=== PATIENT | male | born 2000 | race African-American/Black ===

== ENCOUNTER 2024-01-13 23:59 | Observation (INO) | payer SELFPAY ==
--- NOTE | ~2024-01-13 | US_ITS ---
US abdomen limited INDICATION: Elevated liver function tests PROCEDURE: Realtime right upper abdominal ultrasound. COMPARISON: No prior studies for comparison. FINDINGS: The pancreas is normal without focal mass or pancreatic ductal dilation. Liver echotexture is normal without focal mass or intrahepatic biliary dilatation. There is normal directional flow i n the portal vein. The gallbladder is normal without stones, gallbladder wall thickening or pericholecystic fluid. Comm on bile duct measures 3.5 mm. No sonographic Woodruff's sign. IMPRESSION: 1: Normal limited abdominal ultrasound. Reviewed, dictated and finalized at location B.
[2024-01-14] VITALS (45 sets, daily range): BP systolic 119–151; BP diastolic 62–81; PULSE 50–74; RESP 12–33; TEMP 36.6–36.9; O2SAT 97–100; BMI 19.1
--- NOTE | 2024-01-14 | ECHO_ITS ---
Patient Info Name: Wally Monroy Age: 23 years : 2000 Gender: Male Ht: 71 in Wt: 136 lbs BSA: 1.75 m2 HR: 64 bpm BP: 126 / 67 mmHg Technical Quality: Good Exam Date: 01/14/2024 1:41 PM Exam Location: Echo Lab Patient Status: Inpatient Admit Date: 01/14/2024 Staff Ordering Physician: Kb Maldonado MD [employer] Matting Machine Operator: Fernando Jauregui RDCS Attending Provider: Taina Reis DO Referring Physician: Erica SHEA; Exam Type: CA echo doppler color flow Study Info Indications R94.31 - Abnormal electrocardiogram ECG EKG Complete two-dimensional, color flow and Doppler transthoracic echocardiogram is performed. Summary 1. Complete two-dimensional, color flow and Doppler transthoracic echocardiogram is performed. 2. Left ventricular chamber dimension is normal. 3. Left ventricular systolic function is normal, estimated at 65-70%. 4. The left ventricular diastolic function is normal. 5. E/e' 5 is not elevated. 6. There is trace tricuspid valve regurgitation. 7. No pulmonary hypertension, estimated pulmonary arterial systolic pressure is 24 mmHg. Left Ventricle E/e' 5 is not elevated. Left ventricular chamber dimension is normal. Left ventricular systolic function is normal, estimated at 65-70%. The left ventricular diastolic function is normal. Right Ventricle Right ventricular systolic function is normal and with normal TAPSE 2.4 cm. Right ventricular chamber dimension is normal. Left Atria Left atrial chamber dimension is normal. Right Atria Right atrial chamber dimension is normal. Aortic Valve The aortic valve is trileaflet. There is no aortic valve stenosis. There is no aortic valve regurgitation. Pulmonic Valve There is no pulmonic regurgitation. Mitral Valve There is no mitral valve regurgitation. Tricuspid Valve There is trace tricuspid valve regurgitation. No pulmonary hypertension, estimated pulmonary arterial systolic pressure is 24 mmHg. Pericardium/Pleural There is no pericardial effusion. Inferior Vena Cava Normal inferior vena cava with >50% collapse upon inspiration consistent with normal right atrial pressure, 5 mmHg. Aorta The aortic root size at the sinus of Valsalva is normal. Left Ventricular Outflow Tract Name Value Normal LVOT 2D LVOT Diameter 2.1 cm LVOT Doppler LVOT Peak Gradient 9 mmHg LVOT Mean Gradient 4 mmHg LVOT VTI 25 cm LVOT VTI/AV VTI Ratio 0.9 LVOT Stroke Volume 89 ml LVOT CO 5.4 l/min LVOT CI 3.1 l/min/m2 Pulmonic Valve Name Value Normal PV Doppler PV Peak Gradient 7 mmHg Mitral Valve Name Value Normal
--- NOTE | 2024-01-14 00:10 | ECG_ITS ---
Test Date: 2024-01-14 04:16:08 Measurements Intervals [place] Rate: 52 P: 55 OR: 176 QRS: 72 QRSD: 98 T: 31 QT: 443 QTc: 413 Interpretive Statements SINUS BRADYCARDIA WITH SINUS ARRHYTHMIA INCOMPLETE RIGHT BUNDLE BRANCH BLOCK VOLTAGE CRITERIA FOR LVH ST ELEVATION IN DIFFUSE LEADS- PROBABLY EARLY REPOLARIZATION T WAVE ABNORMALITY IN ANTERIOR LEADS- CONSIDER ISCHEMIA ABNORMAL ECG No previous ECG available for comparison Electronically Signed On 01-14-2024 05:57:33 CDT by Francisco Medeiros D.O.
--- NOTE | 2024-01-14 00:10 | PC.NURSE ---
pt given ice pack per pt request. applied to pt abdominal area.
--- NOTE | 2024-01-14 00:11 | PC.NURSE ---
pt estimates 30-40 tablets of tylenol [employer].
--- NOTE | 2024-01-14 00:15 | ED.GENADULT ---
HPI - General Adult General Chief complaint: Overdose Stated complaint: tylenol overdose, abd pain Time Seen by Provider: 01/14/24 00:12 History of Present Illness HPI narrative: patient 23-year-old gentleman who presents to the emergency department with chief complaint of Tylenol overdose. Patient reports that he was not in a good place and felt depressed and wanted to hurt himself the patient states he took a couple handfuls of Tylenol at around 5-6 o'clock this evening patient states after he did this he has abdominal pain the patient reports that he is not in a good place and feels very depressed Review of Systems Review of Systems: A 10 system review of systems was completed on the patient and is negative except for what is stated in the HPI. Nursing and ancillary documentation was reviewed. [facility] Social History Social History Substance use type: unknown Exam Narrative: GENERAL: Well-appearing, well-nourished, and in no acute distress. HEAD: Normocephalic, atraumatic. EYES: PERRLA and EOMI. ENT: Nares clear, no rhinorrhea or epistaxis. Mucous membranes moist. NECK: Supple. CHEST: Clear to auscultation. No respiratory distress. HEART: Regular rate and rhythm. No murmur heard. Normal peripheral pulses. ABDOMEN: Soft, nontender, nondistended, normal active bowel sounds. EXTREMITIES: Normal range of motion. No edema. SKIN: Warm, dry, no rash. NEURO: No focal deficits. Alert and oriented x3. PSYCH: depressed mood and affect Course Vital Signs Vital signs: Vital Signs Temperature 36.8 C 01/14/24 00:03 Pulse Rate 65 01/14/24 00:03 Respiratory Rate 18 01/14/24 00:03 Blood Pressure 147/65 H 01/14/24 00:03 Pulse Oximetry 100 01/14/24 00:03 Oxygen Delivery Room Air 01/14/24 00:03 Temperature 36.8 C 01/14/24 00:03 Pulse Rate 63 01/14/24 00:45 Respiratory Rate 18 01/14/24 00:54 Blood Pressure 131/79 01/14/24 00:16 Pulse Oximetry 100 01/14/24 00:16 Oxygen Delivery Room Air 01/14/24 00:55 Medical Decision Making Vital Signs Vital Signs: Vital Signs Temperature 36.8 C 01/14/24 00:03 Pulse Rate 65 01/14/24 00:03 Respiratory Rate 18 01/14/24 00:03 Blood Pressure 147/65 H 01/14/24 00:03 Pulse Oximetry 100 01/14/24 00:03 Oxygen Delivery Room Air 01/14/24 00:03 Temperature 36.8 C 01/14/24 00:03 Pulse Rate 63 01/14/24 00:45 Respiratory Rate 18 01/14/24 00:54 Blood Pressure 131/79 01/14/24 00:16 Pulse Oximetry 100 01/14/24 00:16 Oxygen Delivery Room Air 01/14/24 00:55 Lab Data 01/14/24 00:14 01/14/24 00:14 Labs: Lab Results 01/14/24 01/14/24 01/14/24 Range/Units 00:14 00:31 00:52 WBC 6.3 (4.5-10.0) K/mm3 RBC 5.56 (4.6-6.20) M/mm3 Hgb 15.8 (14.0-18.0) g/dL Hct 47.8 (42.0-52.0) % MCV 86.0 (80-100) fl MCH 28.4 (26-34) pg MCHC 33.1 (32-36) g/dl RDW 13.2 (11.5-14.5) % Plt Count 365 (150-375) k/mm3 MPV 8.7 (7.4-10.4) fl Immature Gran % (Auto) 0.3 (0-0.5) % Neut % (Auto) 53.8 (45.5-73.1) % Lymph % (Auto) 28.5 (18.3-44.2) % [place] % (Auto) 16.6 H (2.6-8.5) % Eos % (Auto) 0.2 (0-4.4) % Baso % (Auto) 0.6 (0.2-1.2) % Lymph # (Auto) 1.78 (0.9-3.2) K/mm3 [place] # (Auto) 1.0 H (0.1-0.6) K/mm3 Eos # (Auto) 0.0 (0-0.3) K/mm3 Baso # (Auto) 0.0 (0.0-0.1) K/mm3 Abs Immat Gran (auto) 0.02 (0.00-0.031) K/mm3 Absolute Neuts (auto) 3.4 (1.3-6.7) K/mm3 Absolute Nucleated RBC 0.000 (0.0-0.012) K/mm3 Nucleated RBC % 0.0 (0.0-0.2) % Sodium 137 (137-145) mmol/L Potassium 2.8 L* (3.4-5.0) mmol/L Chloride 100 (98-107) mmol/L Carbon Dioxide 23 (22-30) mmol/L Anion Gap 14 H (4-12) mmol/L BUN 13 (9-20) mg/dL Creatinine 1.00 (0.7-1.3) mg/dL Estim Creat Clear Calc 91 ml/min Estimated G
[2024-01-14 00:19] LABS: Basophils Percent Auto 0.6 % (0.2-1.2); Eosinophils Percent Auto 0.2 % (0-4.4); Hematocrit 47.8 % (42.0-52.0); Hemoglobin 15.8 g/dL (14.0-18.0); Immature Granulocyte Absolute 0.02 K/mm3 (0.00-0.031); Immature Granulocyte Percent A 0.3 % (0-0.5); Lymphocytes Absolute Auto 1.78 K/mm3 (0.9-3.2); Lymphocytes Percent Auto 28.5 % (18.3-44.2); Mean Corpuscular HGB Conc 33.1 g/dl (32-36); Mean Corpuscular Hemoglobin 28.4 pg (26-34); Mean Platelet Volume 8.7 fl (7.4-10.4); Monocytes Percent Auto 16.6 % (2.6-8.5); Neutrophils Absolute Auto 3.4 K/mm3 (1.3-6.7); Neutrophils Percent Auto 53.8 % (45.5-73.1); Platelet Count Result 365 k/mm3 (150-375); Red Blood Count 5.56 M/mm3 (4.6-6.20); Red Cell Distribution Width 13.2 % (11.5-14.5); White Blood Count 6.3 K/mm3 (4.5-10.0)
[2024-01-14 00:28] LABS: Acetaminophen 116 ug/mL (10-30); Ethanol < 10 mg/dL (<10); Salicylate < 1.0 mg/dL (2-20)
--- NOTE | 2024-01-14 00:42 | PC.NURSE ---
Yuliana, Pharmacist at Poison control notified of pt at 0042. Advises to start hospital protocol of Acetylcysteine and repeat Tylenol, AST and ALT 2 hours prior to the end of the dosing. Information given to Dr Barry
[2024-01-14 01:07] LABS: Alanine Aminotransferase 202 U/L (6-50); Albumin Level 4.9 g/dL (3.5-5.1); Alkaline Phosphatase 109 U/L (38-126); Anion Gap 14 mmol/L (4-12); Aspartate Amino Transferase 185 U/L (17-59); Bilirubin,Total 2.1 mg/dL (0.2-1.3); Blood Urea Nitrogen 13 mg/dL (9-20); Calcium 9.6 mg/dL (8.4-10.2); Carbon Dioxide 23 mmol/L (22-30); Chloride 100 mmol/L (98-107); Estimated CRCL calculation 91 ml/min; Estimated Glomerular Filt Rate > 60; Glucose 144 mg/dL (65-110); Potassium 2.8 mmol/L (3.4-5.0); Sodium 137 mmol/L (137-145)
[2024-01-14 01:09] LABS: Appearance Urine Clear (Clear); Bacteria Urine None Seen /hpf; Bilirubin Urine 2+ (Negative); Blood Urine Negative (Negative); Color Urine Dark Yellow (Yellow); Glucose Urine UA Negative (Negative); Ketones Urine 2+ mg/dL (Negative); Leukocyte Esterase Ur Negative LEU/UL (Negative); Nitrate Urine Negative (Negative); Non Pathogenic Casts 0-2; Protein Urine 1+ mg/dL (Negative); RBC Urine 0-2 /hpf (0-2); Specific Grav Ur > 1.045 (1.001-1.035); Squamous Epithelial Cell Urine None Seen /hpf (Few); WBC Urine 0-5 /hpf (0-3)
--- NOTE | 2024-01-14 01:37 | PC.NURSE ---
Poison control updated. will call back around 0500.
[2024-01-14] MEDS: WATER IVPB (03:05)
[2024-01-14] MEDS: DEXTROSE 5% IVPB (03:05)
[2024-01-14] MEDS: ACETYLCYSTEINE IVPB (03:05)
[2024-01-14 03:59] LABS: SARS-CoV-2 RNA PCR Negative (Negative)
[2024-01-14] MEDS: SODIUM CHLORIDE 0.9% IV 1,000 ML 999 ML IV CONT ×2 (04:00)
[2024-01-14 04:02] LABS: Amphetamine Screen Urine Positive (Negative); Barbiturate Screen Urine Negative (Negative); Benzodiazepines Screen Urine Negative (Negative); Cannabinoid Screen Urine Positive (Negative); Cocaine Screen Urine Positive (Negative); Methadone Screen Urine Negative (Negative); Opiate Screen Urine Negative (Negative); Phencyclidine Screen Urine Negative (Negative)
[2024-01-14 04:02] LABS: Thyroid Stimulating Hormone 0.407 uIU/mL (0.465-4.680)
[2024-01-14] MEDS: KCL 20 MEQ/SW 100 ML 100 ML 50 MEQ IVPB (04:21)
[2024-01-14] MEDS: SODIUM CHLORIDE 0.9% IV 1,000 ML 125 ML IV CONT ×3 (04:22→20:30)
--- NOTE | 2024-01-14 04:32 | ADMGEN ---
This patient, Wally Monroy, was admitted to Intensive Care Unit-4. Patient/family oriented to hospital policies and general routines including ID bracelet, bed and alarms, visiting hours, pain management, procedures, bathroom and other care routines, personal items, smoking policy, room service/diet, and visiting hours. Information on how to activate the Rapid Response Team has been discussed. Patient/Family are encouraged to report perceived risks to care and to ask questions if they do not understand what they are told or what they should do.
[2024-01-14 05:43] LABS: Acetaminophen 75 ug/mL (10-30); Salicylate < 1.0 mg/dL (2-20)
[2024-01-14 06:43] LABS: MRSA (PCR) NOT DETECTED (NOT DETECTE)
[2024-01-14 06:44] LABS: Add Urine Microscopic? YES
--- NOTE | 2024-01-14 07:51 | PM.IMHP ---
H&P: HPI History of Present Illness Date/Time: 01/14/24 07:51 Chief Complaint: Intentional drug overdose Narrative: 23yo male who presents to the ED with complaint of Tylenol overdose. Patient states 'I was popping pills' as the reason for presentation. He has been feeling depressed for the past few weeks. He lost his job recently and his foster(?) mother lost her house. He stays with his biologic grandmother. He denies feeling suicidal. He had a sudden desire to end his life and acted impulsively taking a couple of handfuls of Tylenol. He took these around 5-6PM on 01/13/24. He admits to the intentional overdose and states it was a 'dumb mistake'. No hx of attempted suicide in the past. No hx of psychiatric hospital placement. Has ADHD but not on treatment. He has never alexandru diagnosed with depression, anxiety or schizophrenia. He denies visual hallucinations but hears 'voices in the back of my head'. When asked if the voice tells him what to do, he states its 'me talking to me'. He admits to polydrug abuse but denies hx of IVDU. He agrees to HIV and hepatitis testing. He denies fever, chills, CP, palpitations, SOB, cough. URI symptoms, n/v, diarrhea, constipation, dysuria or heamturia. He does complain of dry mouth. He presented to the ED a few hours after the overdose for evaluation. In the ED, his vital signs were stable. CBC was normal. Pertinent labs showing Potassium 2.8, normal bicarb with AG 14, glucose 144 and TSH 0.4. LFTs abnormal with AST 185, ALT 202, TP 9 and Tbili 2.1. UA showing high SG, 1+ protein, 2+ ketones and 2+ bili. UDS positive for Amphetamines, cocaine and cannabinoids. Alcohol level negative. Salicylate level was negative and remained negative on repeat. Acetaminophen level was 116 (approximately 6-7 hours after ingestion) and 75 at 11-12hrs after ingestion. COVID negative. MRSA nasal swab negative. EKG showing sinus bradycardia, incomplete Rt BBB, ST elevation in diffuse leads probably early repolarization with T wave abnormalities in anterior leads. Acetylcysteine started. Potassium was replaced. He was given 2Liters of normal saline. He was admitted to the ICU. Patient is requesting discharge Review of Systems Review of Systems: All systems reviewed & are unremarkable except as noted in HPI and below PMFSH Past Medical History Medical History (Updated 01/14/24 @ 09:00 by Rosalio Schulz MD) ADHD Surgical History Surgical History (Updated 01/14/24 @ 08:48 by Rosalio Schulz MD) No history of previous surgery Family History Family History Other Unknown family medical history Social History Social History (Updated 01/14/24 @ 08:50 by Rosalio Schulz MD) Social History: Smokes tobacco 07/01-06/29 ppd. Admits to drug abuse including cocaine and marijuana. He denies IVDU. Occasional alcohol use. Lives with grandmother. Full code. Nominates his mother to be the individual who would make medical decisions for him if he is unable. Years smoked: 1 Smoking status: Current every day smoker Tobacco type: cigarettes Alcohol intake: never Substance use: current Substance use type: marijuana Do You Feel Safe in your Home?: Yes Lack of Transportation: YES Lack of Food: Never True Current Housing: I Have Housing Concerned About Future Housing: YES Difficulty Paying Gas/Electric Bills: No Difficulty Paying for Meds: No Currently Unemployed: YES Education: High School Diploma/GED Difficulty w/ Childcare or Family Care: No Spiritual care concerns: No Meds Home Medications and Allergies Home Medications Medication Instructions Recorded Confirmed Type No Home Medications 01/14/24 01/14/24 History Allergies Allergy/AdvReac Type Severity Reaction Status Date / Time No Known Allergies Allergy Verified 01/14/24 04:04 Vital Signs Vital Signs - 24 hr 01/14/24 00:03 01/14/24 00:54 01/14/24 00:55
[2024-01-14] MEDS: LACTATED RINGERS 1,000 ML 999 ML IV CONT (08:12)
--- NOTE | 2024-01-14 09:15 | WPDCNINT ---
Assessment and Plan Assessment and plan (1) Acetaminophen overdose: Code(s): T39.1X1A - Poisoning by 4-Aminophenol derivatives, accidental (unintentional), initial encounter Status: Acute Assessment and Plan: Patient presented the ED after he took 2 handfuls of acetaminophen as he was feeling depressed and wanted to end his life, did this impulsively according the patient. -initial acetaminophen level is 116, with elevated LFTs, patient was started on N acetyl cystine infusion -repeat acid amount levels were 75 -continue N acetylcysteine infusion for now -will trend acetaminophen levels and LFTs and coags (2) Suicidal behavior with attempted self-injury: Code(s): T14.91XA - Suicide attempt, initial encounter Status: Acute Assessment and Plan: Patient with pressure 10, currently denies any suicidal ideation. He does not have any history of suicide attempts. -once medically stable patient will require coordination and crisis management evaluation and patient min to a psychiatric facility (3) Electrolyte abnormality: Code(s): E87.8 - Other disorders of electrolyte and fluid balance, not elsewhere classified Status: Acute Assessment and Plan: Potassium was replaced, will continue to monitor (4) Abnormal EKG: Code(s): R94.31 - Abnormal electrocardiogram [ECG] [EKG] Status: Acute Assessment and Plan: Troponins have been ordered, will repeat EKG after potassium has normalized May obtain echocardiogram if repeat EKG is abnormal -patient has a history of methamphetamine, cocaine abuse (5) Drug abuse: Code(s): F19.10 - Other psychoactive substance abuse, uncomplicated Status: Acute Assessment and Plan: Admitted to using cocaine and marijuana along with amphetamines -stated he only tried cocaine and amphetamines -med regularly uses marijuana -counseled patient on cessation of drug use (6) Hyperglycemia: Code(s): R73.9 - Hyperglycemia, unspecified Status: Acute Assessment and Plan: Check hemoglobin A1c (7) ADHD: Code(s): F90.9 - Attention-deficit hyperactivity disorder, unspecified type Status: Acute Assessment and Plan: Not on any medication (8) Tobacco abuse: Code(s): Z72.0 - Tobacco use Status: Acute Assessment and Plan: States he smokes about half a packet per day -counseled patient on cessation of smoking Plan DVT prophylaxis: SCDs Stress ulcer prophylaxis: Not indicated Nutrition: Regular diet Code Status: Full code Critical Care Time Spent: 46 minutes Due to a high probability of clinically significant, life threatening deterioration, the patient required my highest level of preparedness to intervene emergently and I personally spent this critical care time directly and personally managing the patient. This critical care time included obtaining a history; examining the patient; pulse oximetry; ordering and review of studies; arranging urgent treatment with development of a management plan; evaluation of patient's response to treatment; frequent reassessment; and discussions with other providers. It was exclusive of separately billable procedures and treating other patients and teaching time. Please see Assessment and Plan section and the rest of the note for further information on patient assessment and treatment This dictation may have been done utilizing a voice recognition system. Attempts have been made to correct errors. However, there may be uncorrected grammatical, spelling, and recognitions errors present. Broadcast Operations Engineer Consult Note Consult date: 01/14/24 Reason for consult: Acetaminophen overdose HPI: Wally Monroy is a 23 year old male with no prior medical history presented the ED 01/14/2024 early hours to the ER stating that he had taken a couple of handfuls of Tylenol around 5-6 p.m. in the evening on 01/13/2024. All the ER physician he was feeling dep
[2024-01-14 09:29] LABS: Acetaminophen 50 ug/mL (10-30)
[2024-01-14 09:36] LABS: Alanine Aminotransferase 331 U/L (6-50); Albumin Level 4.1 g/dL (3.5-5.1); Alkaline Phosphatase 44 U/L (38-126); Anion Gap 12 mmol/L (4-12); Aspartate Amino Transferase 312 U/L (17-59); Bilirubin,Total 3.3 mg/dL (0.2-1.3); Blood Urea Nitrogen 10 mg/dL (9-20); Calcium 8.3 mg/dL (8.4-10.2); Carbon Dioxide 19 mmol/L (22-30); Chloride 103 mmol/L (98-107); Estimated CRCL calculation 124 ml/min; Estimated Glomerular Filt Rate > 60; Glucose 105 mg/dL (65-110); Magnesium 2.2 mg/dL (1.6-2.3); Phosphorus 3.9 mg/dL (2.5-4.5); Potassium 4.5 mmol/L (3.4-5.0); Sodium 134 mmol/L (137-145)
[2024-01-14 10:09] LABS: Hepatitis B Surface Antigen Negative (Negative)
[2024-01-14 10:10] LABS: Bilirubin Indirect 2.4 mg/dL (0-1.1)
[2024-01-14 10:15] LABS: HAV RESULT Negative (Negative); Hepatitis B Core IgM Result Negative (Negative)
[2024-01-14 10:23] LABS: Troponin I 0.015 ng/mL (0.000-0.034)
[2024-01-14 10:26] LABS: Hepatitis C Virus Antibody Negative (Negative)
--- NOTE | 2024-01-14 10:26 | ECG_ITS ---
Test Date: 2024-01-14 10:45:55 Measurements Intervals [place] Rate: 61 P: 47 CA: 157 QRS: 64 QRSD: 89 T: 29 QT: 395 QTc: 399 Interpretive Statements SINUS RHYTHM ST ELEVATION, PROBABLY EARLY REPOLARIZATION BORDERLINE T WAVE ABNORMALITY- ANTERIOR LEADS BORDERLINE ECG Compared to ECG 01/14/2024 04:16:08 HEART RATE HAS INCREASED Electronically Signed On 01-14-2024 11:18:59 CDT by Francisco Medeiros D.O.
[2024-01-14 10:35] LABS: Hemoglobin A1C 5.7 % (<5.7)
[2024-01-14 10:56] LABS: HIV 1/2 Ab P24 Ag Result Negative (Negative)
[2024-01-14 21:26] LABS: Acetaminophen 17 ug/mL (10-30)
[2024-01-14 21:34] LABS: Alanine Aminotransferase 953 U/L (6-50); Aspartate Amino Transferase 856 U/L (17-59)
[2024-01-14 21:45] LABS: Prothrombin Time 23.2 Seconds (11.1-14.7)
[2024-01-15] VITALS (13 sets, daily range): BP systolic 123–165; BP diastolic 67–100; PULSE 55–70; RESP 16–20; TEMP 36.4–36.9; O2SAT 99–100
[2024-01-15] MEDS: SODIUM CHLORIDE 0.9% IV 1,000 ML 125 ML IV CONT (04:28)
[2024-01-15 05:32] LABS: Basophils Absolute Auto 0.1 K/mm3 (0.0-0.1); Basophils Percent Auto 0.7 % (0.2-1.2); Eosinophils Absolute Auto 0.2 K/mm3 (0-0.3); Hematocrit 44.7 % (42.0-52.0); Hemoglobin 14.4 g/dL (14.0-18.0); Immature Granulocyte Absolute 0.05 K/mm3 (0.00-0.031); Immature Granulocyte Percent A 0.6 % (0-0.5); Mean Corpuscular HGB Conc 32.2 g/dl (32-36); Mean Corpuscular Hemoglobin 28.6 pg (26-34); Mean Corpuscular Volume 88.9 fl (80-100); Mean Platelet Volume 8.7 fl (7.4-10.4); Monocytes Absolute Auto 0.6 K/mm3 (0.1-0.6); Monocytes Percent Auto 6.6 % (2.6-8.5); Neutrophils Absolute Auto 6.5 K/mm3 (1.3-6.7); Neutrophils Percent Auto 73.1 % (45.5-73.1); Platelet Count Result 305 k/mm3 (150-375); Red Blood Count 5.03 M/mm3 (4.6-6.20); Red Cell Distribution Width 13.3 % (11.5-14.5); White Blood Count 8.8 K/mm3 (4.5-10.0)
[2024-01-15 05:40] LABS: Acetaminophen < 10 ug/mL (10-30)
[2024-01-15 05:44] LABS: INR 2.4; Partial Thromboplastin Time 30.3 Seconds (22.3-36.8); Prothrombin Time 26.4 Seconds (11.1-14.7)
[2024-01-15 05:51] LABS: Alanine Aminotransferase 1360 U/L (6-50); Albumin Level 3.3 g/dL (3.5-5.1); Alkaline Phosphatase 77 U/L (38-126); Anion Gap 3 mmol/L (4-12); Aspartate Amino Transferase 1175 U/L (17-59); Bilirubin,Total 4.7 mg/dL (0.2-1.3); Blood Urea Nitrogen 5 mg/dL (9-20); Carbon Dioxide 31 mmol/L (22-30); Chloride 103 mmol/L (98-107); Estimated CRCL calculation 110 ml/min; Estimated Glomerular Filt Rate > 60; Glucose 92 mg/dL (65-110); Magnesium 1.9 mg/dL (1.6-2.3); Phosphorus 2.2 mg/dL (2.5-4.5); Potassium 3.8 mmol/L (3.4-5.0); Sodium 137 mmol/L (137-145)
--- NOTE | 2024-01-15 06:01 | PC.NURSE ---
Spoke with Poison Control at 2208 w/updated labs, was advised to continue with treatment for another 12-16 hours with repeat labs. Called at 0550 and provided morning lab update, advised to continue with treatment. I advised bag will run through approx 5pm, Poison Control ask that we repeat labs around 1500 and c/b with lab update afterward.
[2024-01-15 06:22] LABS: Thyroid Stimulating Hormone Reflex 0.142 uIU/mL (0.465-4.68)
[2024-01-15 07:09] LABS: Free T4 Free Thyroxine Reflex 1.84 ng/dL (0.78-2.19)
[2024-01-15 08:20] LABS: Total Triiodothyronine (T3) 0.58 NG/ML (0.97-1.69)
--- NOTE | 2024-01-15 08:42 | WPDINTPN ---
Progress Note: A&P Assessment and Plan (1) Acetaminophen overdose: Code(s): T39.1X1A - Poisoning by 4-Aminophenol derivatives, accidental (unintentional), initial encounter Status: Acute Assessment and Plan: Patient presented the ED after he took 2 handfuls of acetaminophen as he was feeling depressed and wanted to end his life, did this impulsively according the patient. -initial acetaminophen level is 116, with elevated LFTs, patient was started on N acetyl cystine infusion -acetaminophen levels this morning have normalized and her < 10. -LFTs trending up -INR elevated to 2.6 -poison control recommended continuing N acetylcysteine infusion for now -will trend acetaminophen levels and LFTs and coags -discussed with ELIZABETH Key with [facility] accepted the patient but patient will need to be transferred to the ICU. I discussed with MICU fellow at [facility] will also accepted the patient in ICU. Dr. Phillips will be the ICU attending. Pt will transfer once there is a bed availibility (2) Suicidal behavior with attempted self-injury: Code(s): T14.91XA - Suicide attempt, initial encounter Status: Acute Assessment and Plan: Patient with pressure 10, currently denies any suicidal ideation. He does not have any history of suicide attempts. -once medically stable patient will require coordination and crisis management evaluation and patient min to a psychiatric facility -patient's uncle called this morning and stated that his girlfriend's at this is not the 1st time that he has tried to harm himself, she stated that he has overdosed in the past (3) Electrolyte abnormality: Code(s): E87.8 - Other disorders of electrolyte and fluid balance, not elsewhere classified Status: Acute Assessment and Plan: Will replace potassium, magnesium and phosphorus (4) Abnormal EKG: Code(s): R94.31 - Abnormal electrocardiogram [ECG] [EKG] Status: Acute Assessment and Plan: Troponins have been ordered, will repeat EKG after potassium has normalized May obtain echocardiogram if repeat EKG is abnormal -patient has a history of methamphetamine, cocaine abuse -01/13: Echocardiogram: Summary 1. Complete two-dimensional, color flow and Doppler transthoracic echocardiogram is performed. 2. Left ventricular chamber dimension is normal. 3. Left ventricular systolic function is normal, estimated at 65-70%. 4. The left ventricular diastolic function is normal. 5. E/e' 5 is not elevated. 6. There is trace tricuspid valve regurgitation. 7. No pulmonary hypertension, estimated pulmonary arterial systolic pressure is 24 mmHg. (5) Drug abuse: Code(s): F19.10 - Other psychoactive substance abuse, uncomplicated Status: Acute Assessment and Plan: Admitted to using cocaine and marijuana along with amphetamines -stated he only tried cocaine and amphetamines -med regularly uses marijuana -counseled patient on cessation of drug use (6) Hyperglycemia: Code(s): R73.9 - Hyperglycemia, unspecified Status: Acute Assessment and Plan: Hemoglobin A1c was 5.7 -hyperglycemia was likely stress related -blood sugars have been stable (7) ADHD: Code(s): F90.9 - Attention-deficit hyperactivity disorder, unspecified type Status: Acute Assessment and Plan: Not on any medication (8) Tobacco abuse: Code(s): Z72.0 - Tobacco use Status: Acute Assessment and Plan: States he smokes about half a packet per day -counseled patient on cessation of smoking Plan DVT prophylaxis: SCDs Stress ulcer prophylaxis: Not indicated Nutrition: Regular diet Code Status: Full code Critical Care Time Spent: 33 minutes Discussed with patient updated with his condition and plan of care. I did tell him that his liver enzymes and has coags her elevated and that he may have to be transferred to [facility]
[2024-01-15] MEDS: POTASSIUM PHOS/SODIUM PHOS 250 MG TABLET PO (09:00)
[2024-01-15] MEDS: MAGNESIUM SULF 2 GM/WATER 50ML 2 GM/50 ML BAG IVPB (09:00)
--- NOTE | 2024-01-15 09:40 | PM.IMPN ---
Progress Note: A&P Assessment and Plan (1) Acetaminophen overdose: Code(s): T39.1X1A - Poisoning by 4-Aminophenol derivatives, accidental (unintentional), initial encounter Status: Acute Assessment and Plan: Patient presents with complaint of Tylenol overdose. Acetaminophen levels elevated at or above level requiring treatment. Acetylcysteine started and patient admitted to ICU. LFTs were already elevated but higher now with AST 1175 and ALT 1360. TBili 4.7, PT26.4 and INR 2.4. TP 6 and Albumin 3.3. Tylenol level <10. Continue acetylcysteine per poison control recommendation. Follow labs. Junior Network Engineer following and recommended transfer and this has been arranged. (2) Suicidal behavior with attempted self-injury: Code(s): T14.91XA - Suicide attempt, initial encounter Status: Acute Assessment and Plan: Patient with suicide attempt by Tylenol overdose. He denies prior suicide attempts. He denies depression or anxiety hx but has been feeling depressed recently. He may have schizophrenia and this will need to be further determined. He will need psychiatric placement once he is cleared medically. (3) Hypokalemia: Code(s): E87.6 - Hypokalemia Status: Acute Assessment and Plan: Potassium low at 2.8 on admission. Probably related to dehydration and/or poor oral intake. Potassium replaced and normal now. Follow and continue to replace as needed (4) Abnormal EKG: Code(s): R94.31 - Abnormal electrocardiogram [ECG] [EKG] Status: Acute Assessment and Plan: EKG showing sinus bradycardia, incomplete Rt BBB, ST elevation in diffuse leads probably early repolarization with T wave abnormalities in anterior leads. Probably related to drug use and/or hypokalemia. Tele showing stable rhythm. Trop x1 negative. Echo essentially normal with EF 65-70%. No clincal concerns for endocarditis. Follow on tele (5) Drug abuse: Code(s): F19.10 - Other psychoactive substance abuse, uncomplicated Status: Acute Assessment and Plan: Patient admits to using cocaine and marijuana. UDS also positive for amphetamines. He denies hx of IVDU Watch for evidence of withdrawal. Hepatitis panel and HIV negative. Educated about the benefits of abstaining from drug use (6) Hyperglycemia: Code(s): R73.9 - Hyperglycemia, unspecified Status: Acute Assessment and Plan: Glucose elevated on admission felt related to stress response. A1c 5.7. Glucose better (7) ADHD: Code(s): F90.9 - Attention-deficit hyperactivity disorder, unspecified type Status: Acute Assessment and Plan: Not on treatment Supportive care (8) Tobacco abuse: Code(s): Z72.0 - Tobacco use Status: Acute Assessment and Plan: Educated about the benefits of abstaining from tobacco use. Plan DVT prophylaxis - SCDs Code status - full Subjective Date/time seen: 01/15/24 09:40 Interval history: 23yo male who presents to the ED with complaint of Tylenol overdose. No issues overnight. Denies CP or SOB. No nausea/vomiting. Not eating much because 'I don't want to be here'. No abd pain. Exam Narrative: AF 98.2 123/67 57 17 100% ra Gen - NARD Chest - CTA bilaterally, nml RR CV - RRR S1/S2; Tele showing no significant dysrhythmias. Abd - soft, NT/ND, no HSM Ext - no pedal edema. Neuro - nonfocal Psych - normal mood but sad affect. Skin - warm and dry. Objective Data Vital Signs Vital Signs: Vital Signs - 24 hr 01/14/24 10:00 01/14/24 10:00 01/14/24 11:57 Temperature Pulse Rate 65 65 64 Respiratory Rate 12 16 Blood Pressure 134/68 Pulse Oximetry 100 Oxygen Delivery Room Air 01/14/24 12:00 01/14/24 12:00 01/14/24 14:00 Temperature 98.2 F Pulse Rate 61 64 61 Respiratory Rate 19 Blood Pressure 126/67 Pulse Oximetry 100 Oxygen Delivery 01/14/24 14:00 07
[2024-01-15] MEDS: SODIUM CHLORIDE 0.9% IV 1,000 ML 75 ML IV CONT (13:06)
[2024-01-15 16:32] LABS: Hematocrit 44.7 % (42.0-52.0); Mean Corpuscular HGB Conc 33.6 g/dl (32-36); Mean Corpuscular Hemoglobin 29.4 pg (26-34); Mean Corpuscular Volume 87.6 fl (80-100); Mean Platelet Volume 9.2 fl (7.4-10.4); Platelet Count Result 263 k/mm3 (150-375); Red Cell Distribution Width 13.2 % (11.5-14.5); White Blood Count 6.2 K/mm3 (4.5-10.0)
[2024-01-15 16:45] LABS: INR 3.4; Partial Thromboplastin Time 33.2 Seconds (22.3-36.8); Prothrombin Time 35.2 Seconds (11.1-14.7)
[2024-01-15 16:50] LABS: Acetaminophen < 10 ug/mL (10-30); Lactic Acid Reflex 1.6 mmol/L (0.7-2.0)
[2024-01-15 16:51] LABS: Ammonia < 9 umol/L (9-30)
[2024-01-15 17:09] LABS: Albumin Level 3.7 g/dL (3.5-5.1); Alkaline Phosphatase 88 U/L (38-126); Anion Gap 8 mmol/L (4-12); Bilirubin,Total 4.2 mg/dL (0.2-1.3); Blood Urea Nitrogen 4 mg/dL (9-20); Calcium 8.2 mg/dL (8.4-10.2); Carbon Dioxide 29 mmol/L (22-30); Chloride 101 mmol/L (98-107); Estimated CRCL calculation 119 ml/min; Estimated Glomerular Filt Rate > 60; Glucose 112 mg/dL (65-110); Magnesium 2.3 mg/dL (1.6-2.3); Potassium 3.4 mmol/L (3.4-5.0); Sodium 138 mmol/L (137-145)
[2024-01-15 17:37] LABS: Aspartate Amino Transferase > 7500 U/L (17-59)
[2024-01-15 17:44] LABS: Alanine Aminotransferase > 3750 U/L (6-50)
--- NOTE | 2024-01-15 19:08 | PC.NURSE ---
RN spoke with Dr. Maldonado at 1815 and updated on patient condition, labs, and poison control recommendations. Labs and medications ordered as instructed and RN to reach out to [facility].
--- NOTE | 2024-01-15 19:15 | PC.NURSE ---
This RN reached out to [facility] [place] [facility] at 0820, Patient accepted but no bed available at this time. RN gave updates on changes in labs on patient. Transfer center to reach out to accepting physician.
[2024-01-15] MEDS: POTASSIUM CHLORIDE 20 MEQ ER TABLET 40 MEQ PO (20:04)
--- NOTE | 2024-01-15 21:57 | PC.NURSE ---
attempted to call report to the receiving nurse at [facility]. No answer will call again.
--- NOTE | 2024-01-15 22:41 | PCDIET ---
2210 Report given to MAYUR Paetl 2240 Patient transferred to ambulance stretcher for transport to [facility].
--- NOTE | 2024-01-16 06:41 | PM.TDS ---
Transfer Discharge Sum: Prov Provider Date of admission: 01/14/24 03:43 Primary care physician: Girish Moise MD Admitting clinician: Taina Reis DO Consults: 01/14/24 03:44 Consult to Physician Routine Comment: Consulting Provider: Kb Maldonado Reason for consultation: acetaminophen overdose Has provider been notified: Yes DS: Admitting Diagnosis Discharge Date 01/15/24 Admitting Diagnosis Intentional Tylenol overdose DS: Discharge Diagnosis Discharge Diagnosis (1) Acetaminophen overdose: Code(s): T39.1X1A - Poisoning by 4-Aminophenol derivatives, accidental (unintentional), initial encounter Status: Acute (2) Suicidal behavior with attempted self-injury: Code(s): T14.91XA - Suicide attempt, initial encounter Status: Acute (3) Hypokalemia: Code(s): E87.6 - Hypokalemia Status: Acute (4) Abnormal EKG: Code(s): R94.31 - Abnormal electrocardiogram [ECG] [EKG] Status: Acute (5) Drug abuse: Code(s): F19.10 - Other psychoactive substance abuse, uncomplicated Status: Acute (6) Hyperglycemia: Code(s): R73.9 - Hyperglycemia, unspecified Status: Acute (7) ADHD: Code(s): F90.9 - Attention-deficit hyperactivity disorder, unspecified type Status: Acute (8) Tobacco abuse: Code(s): Z72.0 - Tobacco use Status: Acute Transfer Discharge Sum: Med Medications Active and Home Medications: Home Medications No Home Medications 01/14/24 [History Confirmed 01/14/24] Transfer Discharge Sum: Hosp Hospital Course Hospital course: Wally Monroy is a 23 year old male who presents to the ED with complaint of Tylenol overdose. Please see H&P for details. Patient presents with complaint of Tylenol overdose. Acetaminophen levels elevated at or above level requiring treatment. Potassium low at 2.8 on admission. Potassium replaced and normal now. Acetylcysteine started and patient admitted to ICU. LFTs were already elevated on admission but higher now with AST >7500 and ALT >3750. TBili 4.7, PT 35 and INR 3.4. Tylenol level trended down to <10. We continued acetylcysteine per poison control recommendation. Superintendent Stations following and recommended transfer and this was arranged. Patient with suicide attempt by Tylenol overdose. He denies prior suicide attempts. He denies depression or anxiety hx but has been feeling depressed recently. He may have schizophrenia and this will need to be further determined. He will need psychiatric placement once he is cleared medically. EKG showing sinus bradycardia, incomplete Rt BBB, ST elevation in diffuse leads probably early repolarization with T wave abnormalities in anterior leads. Probably related to drug use and/or hypokalemia. Tele showing stable rhythm. Trop x1 negative. Echo essentially normal with EF 65-70%. No clinical concerns for endocarditis. Patient admits to using cocaine, marijuana and methamphetamines. He denies hx of IVDU. No evidence of symptoms of withdrawal. Hepatitis panel and HIV negative. Educated about the benefits of abstaining from drug use. He was accepted for transfer. He was transferred in stable condition on 01/15/24. Time Spent with Patient Time attestation: Total time spent providing and/or coordinating transfer services: 35 minutes Total time spent: Greater than 30 minutes Exam Narrative: AF 98.2 123/67 57 17 100% ra Gen - NARD Chest - CTA bilaterally, nml RR CV - RRR S1/S2; Tele showing no significant dysrhythmias. Abd - soft, NT/ND, no HSM Ext - no pedal edema. Neuro - nonfocal Psych - normal mood but sad affect. Skin - warm and dry. DS: Data Data Completed and Pending Labs on day of discharge: Labs from last 24 hours 01/15/24 01/15/24 01/15/24 16:18 16:18 16:18 WBC 6.2 RBC 5.10 Hgb 15.0 Hct 44.7 MCV 87.6 MCH 29.4 MCHC 33.6 RDW 13.2 Plt Count
== END 2024-01-15 22:35 | disposition short-term general hospital (02) ==
LOC: ANHED 01-14 00:45 → ANHICU 01-14 04:13
PROVIDERS: Internal Medicine; Admitting Provider Internal Medicine; Emergency Provider Emergency Medicine; PCP Emergency Medicine; Visit Provider Internal Medicine
DX: T39.1X2A Poisoning by 4-Aminophenol derivatives, intentional self-harm, initial encounter (principal); E87.6 Hypokalemia; R94.31 Abnormal electrocardiogram [ECG] [EKG]; R73.9 Hyperglycemia, unspecified; F90.9 Attention-deficit hyperactivity disorder, unspecified type; F17.210 Nicotine dependence, cigarettes, uncomplicated; F12.90 Cannabis use, unspecified, uncomplicated; F14.90 Cocaine use, unspecified, uncomplicated; F19.10 Other psychoactive substance abuse, uncomplicated; Z11.4 Encounter for screening for human immunodeficiency virus [HIV]; Z11.52 Encounter for screening for COVID-19
CPT/HCPCS: 36415; 76705; 80053; 80074; 80307; 81001; 82140; 83036; 83605; 83735; 84100; 84439; 84443; 84450; 84460; 84480; 84484; 85025; 85027; 85610; 85730; 86703; 87635; 87641; 93005; 93306; 96361; 96365; 96366; 96367; 96376; 99285; A9270; G0378; G0379; G0432; J0132; J3475; J3480; J7030; J7060; J7070; J7120